=== PATIENT | male | born 2005 | race Two or more races ===

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

== ENCOUNTER → 2023-03-08 | Outpatient (CLI) | payer OTHER | LOC: M SLEEP 20:00 | PROVIDERS: ATTEND Physician Assistant | DX: G47.33 Obstructive sleep apnea (adult) (pediatric) (principal) ==

== ENCOUNTER 2023-03-19 06:17 | Emergency (ER) | payer OTHER ==
[2023-03-19] MEDS ORDERED: SUCRALFATE 1 GM TAB PO ONE (07:30)
[2023-03-19] MEDS ORDERED: MAALOX 30 ML SUSP *UDC PO ONE (07:30)
[2023-03-19] MEDS ORDERED: ONDANSETRON 4MG 2ML VIAL IV ONE (07:30)
[2023-03-19] MEDS ORDERED: HYOSCYAMINE SULFATE 0.125 MG SUBL TABLET PO ONE (07:30)
[2023-03-19] MEDS ORDERED: PANTOPRAZOLE 40MG VIAL IV ONE (07:30)
[2023-03-19 07:46] LABS: BASO % 0.3 % (0.0-1.0); EOS # 0.1 10^3/uL (0.0-0.5); EOS % 0.4 % (0.0-3.0); HEMATOCRIT 46.2 % (42.0-52.0); LYMPH # 2.4 10^3/uL (1.5-5.0); LYMPH % 17.8 % (24.0-44.0); MEAN CORPUSCULAR HEMOGLOBIN 27.6 pg (27.0-33.0); MEAN CORPUSCULAR HGB CONC 32.5 g/dl (32.0-36.5); MEAN CORPUSCULAR VOLUME 84.9 fl (80.0-96.0); MONO # 0.8 10^3/uL (0.0-0.8); MONO % 5.8 % (2.0-8.0); NEUTROPHILS % 75.3 % (36.0-66.0); PLATELET COUNT, AUTOMATED 255 10^3/uL (150-450); RED BLOOD COUNT 5.44 10^6/uL (4.30-6.10); WHITE BLOOD COUNT 13.2 10^3/uL (4.0-10.0)
[2023-03-19 08:25] LABS: LIPASE 29 U/L (12-53)
[2023-03-19 08:27] LABS: ALBUMIN 3.7 G/DL (3.2-5.2); ALKALINE PHOSPHATASE 160 U/L (46-116); ALT/SGPT 41 U/L (7.0-40); AST/SGOT 19 U/L (<34); BILIRUBIN,TOTAL 0.2 MG/DL (0.3-1.2); BLOOD UREA NITROGEN 20 MG/DL (9-23); CALCIUM LEVEL 9.6 MG/DL (8.5-10.1); CARBON DIOXIDE LEVEL 25 MMOL/L (20-31); CHLORIDE LEVEL 109 MMOL/L (98-107); CREATININE FOR GFR 0.91 MG/DL (0.70-1.30); GLUCOSE, FASTING 116 MG/DL (60-100); POTASSIUM SERUM 3.5 MMOL/L (3.5-5.1); SODIUM LEVEL 145 MMOL/L (136-145); TOTAL PROTEIN 7.1 G/DL (5.7-8.2)
[2023-03-19] MEDS ORDERED: KETOROLAC 30 MG/ML 1ML VIAL IV ONE (08:40)
[2023-03-19] MEDS ORDERED: ISOVUE-370 76% 100ML VIAL As Ordered ONE (09:20)
[2023-03-19] MEDS ORDERED: ONDA4TAB6 PO (10:55)
[2023-03-19] MEDS ORDERED: AMOX875T2 PO (10:55)
[2023-03-19 11:03] VITALS: BP 139/63; TEMP 99; O2SAT 97
[2023-03-19] MEDS ORDERED: AUGMENTIN 875 MG TAB PO ONE (11:05)
== END 2023-03-19 11:11 | disposition home or self-care (01) ==
LOC: M ED 06:17
DX: R10.13 Epigastric pain (principal); K80.00 Calculus of gallbladder with acute cholecystitis without obstruction; I10 Essential (primary) hypertension; Z79.83 Long term (current) use of bisphosphonates; Z79.2 Long term (current) use of antibiotics
CPT/HCPCS: 74021; 74177; 76705; 80053; 83690; 85025; 96374; 96375; 99284; C9113; J1885; J2405; Q9967

== ENCOUNTER 2023-05-10 11:28 | Day surgery (SDC) | payer OTHER ==
[~2023-05-10] VITALS: Ht 180.3 cm; Wt 130.0 kg
[~2023-05-10 11:28] MED LIST: AMOX875T2 PO; CelecoXIB 400 MG CAP PO ONE; LIDOCAINE 2% 100MG/5ML SDV (FOR ANES.) As Ordered ONE; MIDAZOLAM INJ 2MG/2ML VIAL As Ordered ONE; ONDA4TAB6 PO; ROCURONIUM BROMIDE 50MG/5ML VIAL As Ordered ONE; ceFAZolin SOD 1 GM in D5W MINI-BAG PLUS 50 ML IV ONE; ceFAZolin SOD 2 GM in IV 1 EA IV ONE; fentaNYL 250 MCG/5 ML INJECTION As Ordered ONE; propofoL 200 MG/20 ML VIAL As Ordered ONE
[2023-05-10] MEDS ORDERED: LIDOCAINE 1% SDV 30ML VIAL As Ordered ONE ×2 (13:19→13:20)
[2023-05-10] MEDS ORDERED: INDOCYANINE GREEN 25MG VIAL (IC-GREEN) As Ordered ONE (13:19)
[2023-05-10] MEDS ORDERED: ROCURONIUM BROMIDE 50MG/5ML VIAL As Ordered ONE (14:02)
[2023-05-10] MEDS ORDERED: ACETAMINOPHEN 1000MG 100ML IV BAG As Ordered ONE ×2 (14:09→16:24)
[2023-05-10] MEDS ORDERED: ONDANSETRON 4MG 2ML VIAL As Ordered ONE ×2 (14:29→14:33)
[2023-05-10] MEDS ORDERED: KETOROLAC 60MG 2ML VIAL As Ordered ONE ×2 (14:29→14:33)
[2023-05-10] MEDS ORDERED: SUGAMMADEX SODIUM 500 MG/5 ML VIAL (BRIDION) As Ordered ONE (14:33)
[2023-05-10] MEDS ORDERED: fentaNYL 100 MCG/2 ML INJECTION IV PRN (15:25)
[2023-05-10] MEDS ORDERED: ONDANSETRON 4MG 2ML VIAL IV PRN (15:25)
[2023-05-10] MEDS ORDERED: LR 1,000 ML IV SCH (15:25)
[2023-05-10] MEDS ORDERED: MEPERIDINE 25 MG/ML 1ML VIAL IV PRN (15:25)
[2023-05-10] MEDS ORDERED: NORCO, ANEXSIA 5/325MG TABLET (HYDROcodone/ACETAMINOPHEN) PO PRN ×2 (16:05→16:10)
[2023-05-10 17:08] VITALS: BP 132/79; TEMP 97.9; O2SAT 97
[2023-05-10] MEDS ORDERED: KETOROLAC 30 MG/ML 1ML VIAL IV SCH (21:00)
== END 2023-05-10 17:13 | disposition home or self-care (01) ==
LOC: M SDC 11:28
PROVIDERS: ATTEND Surgery
DX: K80.10 Calculus of gallbladder with chronic cholecystitis without obstruction (principal); G47.30 Sleep apnea, unspecified
CPT/HCPCS: 47563; 64488; 88304; J0131; J0665; J0690; J1100; J1885; J2250; J2405; J3010; Q9968; S2900